=== PATIENT | male | born 1950 | race Caucasian/White ===

== ENCOUNTER 2018-08-20 09:33 | Emergency (ER) | payer OTHER, BC ==
[~2018-08-20] VITALS: Ht 175.3 cm; Wt 85.3 kg
[2018-08-20 09:41] VITALS: BP_SYST 159
--- NOTE | 2018-08-20 09:47 | NUR ---
Patient to ER bed 8 to gown for evaluation. Side rails up. Report given to Humble MALDONADO.
--- NOTE | 2018-08-20 09:47 | NUR ---
Pt c/o right flank pain since 01:00 this AM. Pt states that he had a kidney stone in 2015 and the pain and location feels the same. Denies dysuria or hematuria.
--- NOTE | 2018-08-20 09:55 | NUR ---
Dr. Marquez at bedside.
[2018-08-20] MEDS ORDERED: KETOROLAC TROMETHAMINE 30 MG VIAL IVP ONE (10:00)
[2018-08-20] MEDS ORDERED: MORPHINE 4 MG/ML INJ. SYRINGE IVP ONE (10:00)
[2018-08-20] MEDS ORDERED: DIPHENHYDRAMINE INJ 50 MG/ML VIAL IVP ONE (10:00)
[2018-08-20 10:06] LABS: BILIRUBIN,URINE NEGATIVE (NEGATIVE); BLOOD, URINE 3+ (NEGATIVE); CLARITY/URINE CLEAR (CLEAR); COLOR,URINE YELLOW (YELLOW); GLUCOSE,URINE NEGATIVE (NEGATIVE); KETONES,URINE NEGATIVE (NEGATIVE); LEUKOCYTE ESTERASE ,URINE NEGATIVE (NEGATIVE); NITRITE, URINE NEGATIVE (NEGATIVE); PH,URINE 5.5 (5.0-8.0); PROTEIN URINE 1+ (NEGATIVE); UROBILINOGEN,URINE 0.2 (0.2-1.0)
[2018-08-20 10:23] LABS: BASOPHILS # (AUTO) 0.1 K/uL (0.0-0.2); BASOPHILS % (AUTO) 1.6 % (0.0-2.0); EOSINOPHILS # (AUTO) 0.2 K/uL (0.0-0.4); EOSINOPHILS % (AUTO) 2.6 % (0.0-4.0); HEMATOCRIT 43.9 % (36-54); HEMOGLOBIN 14.8 g/dL (14.0-18.0); LYMPHOCYTES # (AUTO) 1.2 K/uL (1.0-5.5); LYMPHOCYTES % (AUTO) 19.6 % (20.5-51.5); MEAN CORPUSCULAR HEMOGLOBIN 31 pg (27-31); MEAN CORPUSCULAR HGB CONC 34 % (32-36); MEAN CORPUSCULAR VOLUME 93 fL (79.0-98.0); MONOCYTES # (AUTO) 0.4 K/uL (0.0-1.0); MONOCYTES % (AUTO) 7.3 % (1.7-9.3); NEUTROPHILS # (AUTO) 4.1 K/uL (1.8-7.7); NEUTROPHILS % (AUTO) 68.9 % (40.0-70.0); PLATELET COUNT (AUTO) 239 K/uL (130-430); RED BLOOD CELL COUNT(AUTO) 4.71 MIL/uL (4.2-6.2); RED CELL DISTRIBUTION WIDTH 13.1 % (9.0-15.0)
[2018-08-20 10:32] LABS: CALCIUM 9.3 mg/dL (8.4-11.0); CREATININE 1.18 mg/dL (0.55-1.30); POTASSIUM 4.2 mmol/L (3.5-5.1)
--- NOTE | 2018-08-20 10:32 | NUR ---
Pt to CT via stretcher.
[2018-08-20 10:37] LABS: TOTAL BILIRUBIN 0.5 mg/dL (0.0-1.0)
--- NOTE | 2018-08-20 10:40 | NUR ---
Pt returns from CT.
[2018-08-20 10:45] LABS: BACTERIA,URINE MODERATE /HPF (None Seen); RBC,URINE 20-50 /HPF (0-3); YEAST,URINE None Seen /HPF (None Seen)
[2018-08-20 10:46] LABS: COARSE GRANULAR CASTS,URINE 0-10 /LPF (None Seen); HYALINE CASTS, URINE 0-10 /LPF (None Seen); MUCUS,URINE 2+ /LPF (None Seen); URINE AMORPHOUS URATE 1+ /HPF (None Seen)
--- NOTE | 2018-08-20 11:00 | NUR ---
Pt resting quietly, VSS, family member at bedside and no needs verbalized at this time.
[2018-08-20] MEDS ORDERED: LEVOFLOXACIN 500 MG TABLET PO ONE (12:30)
[2018-08-20 12:50] VITALS: BP_SYST 145
--- NOTE | 2018-08-20 12:50 | NUR ---
Patient given written and verbal discharge instructions and verbalizes understanding. ER MD discussed with patient the results and treatment provided. Patient in stable condition. ID arm band removed. IV catheter removed intact and dressing applied, no active bleeding. Rx of Bactrim, Levaquin, [place] given. Patient educated on pain management and to follow up with PMD. Pain Scale 3/10. Opportunity for questions provided and answered. Medication side effect fact sheet provided. Pt instructed not to drive after taking norco and to not mix norco with alcohol.
== END 2018-08-20 12:50 | disposition home or self-care (01) ==
LOC: SED 09:33
DX: N20.0 Calculus of kidney (principal); N39.0 Urinary tract infection, site not specified; E11.9 Type 2 diabetes mellitus without complications; I10 Essential (primary) hypertension; E78.5 Hyperlipidemia, unspecified; Z90.49 Acquired absence of other specified parts of digestive tract; Z87.442 Personal history of urinary calculi
CPT/HCPCS: 36415; 71045; 74176; 80053; 81000; 83690; 85025; 85610; 87086; 93005; 96374; 96375; 99285; J1200; J1885; J2270

== ENCOUNTER 2021-07-19 10:12 | Emergency (ER) | payer OTHER, BC ==
[~2021-07-19] VITALS: Ht 175.3 cm; Wt 84.4 kg
--- NOTE | 2021-07-19 10:12 | NUR ---
Note amelie in ED - 07/19/21 at 1026 by EASTON Patient to ER bed 1 to robert for evaluation. Side rails up. Report given to Verónica Gaona.
--- NOTE | 2021-07-19 10:14 | NUR ---
Laly kinsey in ED - 07/19/21 at 1026 by EASTON EDWIN Oshea at bedside examining patient.
[2021-07-19 10:22] VITALS: BP_SYST 136
--- NOTE | 2021-07-19 10:26 | NUR ---
Patient to ER bed 8 to gown for evaluation. Side rails up. Report given to SEE MALDONADO.
--- NOTE | 2021-07-19 10:30 | NUR ---
CALM, ALERT, RESP UNLABORED, SKIN WARM AND DRYT. COMMUNICATES CLEARLY IN FULL COMPLETE SENTECES.
--- NOTE | 2021-07-19 10:40 | NUR ---
DR TORRES IN TO ASSESS
--- NOTE | 2021-07-19 11:26 | NUR ---
BACK FROM CT
[2021-07-19] MEDS ORDERED: ONDANSETRON HCL 4 MG/2 ML VIAL IVP ONE (11:45)
[2021-07-19] MEDS ORDERED: PRED20TA PO (12:53)
[2021-07-19] MEDS ORDERED: predniSONE 20 MG TABLET PO ONE (13:00)
[2021-07-19] MEDS ORDERED: MORPHINE SULFATE 10 MG/ML VIAL IM ONE (13:00)
[2021-07-19] MEDS ORDERED: DIPHENHYDRAMINE INJ 50 MG/ML VIAL IM ONE (13:00)
[2021-07-19 13:35] VITALS: BP_SYST 131
--- NOTE | 2021-07-19 13:36 | NUR ---
Patient given written and verbal discharge instructions and verbalizes understanding. ER MD discussed with patient the results and treatment provided. Patient in stable condition. ID arm band removed. Rx of NORCO,PREDNISONE given. Patient educated on pain management and to follow up with PMD. Pain Scale 2/10 Opportunity for questions provided and answered. Medication side effect fact sheet provided.
== END 2021-07-19 13:35 | disposition home or self-care (01) ==
LOC: SED 10:12
DX: M54.31 Sciatica, right side (principal); M48.00 Spinal stenosis, site unspecified; M47.816 Spondylosis without myelopathy or radiculopathy, lumbar region; I10 Essential (primary) hypertension; E11.9 Type 2 diabetes mellitus without complications; Z79.899 Other long term (current) drug therapy
CPT/HCPCS: 72131; 76376; 96372; 99284; J1200; J2270; J7512

== ENCOUNTER 2023-02-21 11:09 | Emergency (ER) | payer OTHER, BC ==
[~2023-02-21] VITALS: Ht 170.2 cm; Wt 80.7 kg
[~2023-02-21 11:09] MED LIST: PRED20TA PO
[2023-02-21 11:16] VITALS: BP_SYST 152
--- NOTE | 2023-02-21 11:58 | NUR ---
Patient in ER bed 4 for c/o earache with past hx tinnitus. Patient unable to sleep. Buzzing is 24/7 with insomnia and medication he takes for insomnia. Patient unable to sleep well for past 13 days. He is unable to get decent sleep. He c/o elbow hurting. Left arm.
--- NOTE | 2023-02-21 11:59 | NUR ---
patient has history of htn, cholesterol high, diabetes.
--- NOTE | 2023-02-21 12:03 | NUR ---
Dr. Almodovar at bedside to MSE patient.
[2023-02-21] MEDS ORDERED: ALPRAZolam 0.25 MG TABLET PO ONE (12:15)
[2023-02-21] MEDS ORDERED: ACETAMINOPHEN 500 MG TABLET PO ONE (12:15)
[2023-02-21] MEDS ORDERED: ALPR0.5T PO (13:14)
--- NOTE | 2023-02-21 13:58 | NUR ---
waiting cat scan
--- NOTE | 2023-02-21 14:45 | NUR ---
Patient given written and verbal discharge instructions and verbalizes understanding. ER MD discussed with patient the results and treatment provided. Patient in stable condition. ID arm band removed. Rx of Xanax given. Patient educated on pain management and to follow up with PMD. Pain Scale 2/10 . Opportunity for questions provided and answered. Medication side effect fact sheet provided.
[2023-02-21 14:48] VITALS: BP_SYST 132
== END 2023-02-21 14:45 | disposition home or self-care (01) ==
LOC: SED 11:09
DX: H61.22 Impacted cerumen, left ear (principal); H93.12 Tinnitus, left ear; R51.9 Headache, unspecified; E78.5 Hyperlipidemia, unspecified; E11.9 Type 2 diabetes mellitus without complications; I10 Essential (primary) hypertension; Z79.899 Other long term (current) drug therapy
CPT/HCPCS: 70450-TC; 76376; 99284

== ENCOUNTER 2023-07-08 08:53 | Emergency (ER) | payer OTHER, BC ==
[~2023-07-08] VITALS: Ht 170.2 cm; Wt 84.8 kg
[2023-07-08 08:53] VITALS: BP_SYST 179; PULSE 65; RESP 17; TEMP 98.2; O2SAT 98
[~2023-07-08 08:53] MED LIST changes: +ALPR0.5T PO
[2023-07-08] MEDS ORDERED: METOCLOPRAMIDE HCL 10 MG/2 ML VIAL IVP ONE (09:00)
[2023-07-08] MEDS ORDERED: DIPHENHYDRAMINE INJ 50 MG/ML VIAL IVP ONE (09:00)
[2023-07-08 09:53] LABS: ANION GAP 10 (5-15); CALCIUM 8.4 mg/dL (8.4-11.0); CARBON DIOXIDE 23 mmol/L (23-29); CHLORIDE 105 mmol/L (98-107); CREATININE 1.67 mg/dL (0.55-1.30); GLUCOSE 248 mg/dL (74-106); POTASSIUM 4.2 mmol/L (3.5-5.1); SODIUM SERUM 138 mmol/L (136-145); UREA NITROGEN, BLOOD 24 mg/dL (8-21)
[2023-07-08 09:54] LABS: BASOPHILS % (AUTO) 0.7 % (0.0-2.0); EOSINOPHILS # (AUTO) 0.2 K/uL (0.0-0.4); EOSINOPHILS % (AUTO) 4.4 % (0.0-4.0); HEMATOCRIT 38.4 % (36-54); HEMOGLOBIN 12.6 g/dL (14.0-18.0); LYMPHOCYTES # (AUTO) 1.3 K/uL (1.0-5.5); LYMPHOCYTES % (AUTO) 32.3 % (20.5-51.5); MEAN CORPUSCULAR HEMOGLOBIN 30 pg (27-31); MEAN CORPUSCULAR HGB CONC 33 % (32-36); MEAN CORPUSCULAR VOLUME 91 fL (79.0-98.0); MONOCYTES # (AUTO) 0.3 K/uL (0.0-1.0); MONOCYTES % (AUTO) 8.1 % (1.7-9.3); NEUTROPHILS # (AUTO) 2.2 K/uL (1.8-7.7); NEUTROPHILS % (AUTO) 54.5 % (40.0-70.0); PLATELET COUNT (AUTO) 179 K/uL (130-430); RED BLOOD CELL COUNT(AUTO) 4.22 MIL/uL (4.2-6.2); RED CELL DISTRIBUTION WIDTH 14.4 % (9.0-15.0)
[2023-07-08 09:56] LABS: ERYTHROCYTE SEDIMENTATION RATE 10 MM/HR (0-15)
[2023-07-08 10:07] LABS: ALANINE AMINOTRANSFERASE 14 U/L (12-78); ASPARTATE AMINOTRANSFERASE 14 U/L (10-37); TOTAL BILIRUBIN 0.4 mg/dL (0.0-1.0)
[2023-07-08] MEDS ORDERED: HYDR-3927 PO (10:17)
[2023-07-08] MEDS ORDERED: IBUP-2018 PO (10:17)
[2023-07-08 10:30] VITALS: BP_SYST 129; PULSE 62; RESP 14; TEMP 97.8; O2SAT 98
== END 2023-07-08 10:29 | disposition home or self-care (01) ==
LOC: SED 08:53
DX: R51.9 Headache, unspecified (principal); E11.9 Type 2 diabetes mellitus without complications; I10 Essential (primary) hypertension; E78.5 Hyperlipidemia, unspecified; Z79.899 Other long term (current) drug therapy
CPT/HCPCS: 99284; 96374; 96375; 80053; 85025; 85651; 36415; 82397; J1200; J2765